=== PATIENT | male | born 1950 | race Caucasian/White ===

== ENCOUNTER 2016-12-09 13:01 | Emergency (ER) | payer OTHER ==
[~2016-12-09] VITALS: Ht 182.9 cm; Wt 94.4 kg
[~2016-12-09 13:01] MED LIST: ATORVASTATIN CA20 MG PO; CIPRO500 MG PO; DELTASONE20 M1 PO; FLOMAX0.4 MG PO; GABAPENTIN300 MG PO; LISINOPRIL10 MG PO; LO-DOSE ASPIRIN81 M1 PO; METAGLIP 5/51 TABLET PO; NOHOMEMEDS; OXAYDO5 MG PO; PERCOCET 5/31 TABLET PO; TRULICITY0.75 MG/0. SC; ZOFRAN4 MG PO
[2016-12-09 13:36] LABS: ADD MIUA? YES; BILIRUBIN NEGATIVE; BLOOD SMALL; COLOR AMBER ((YELLOW)); GLUCOSE (STRIP) 150; KETONES 5; LEUKOCYTES NEGATIVE; NITRITE NEGATIVE; PROTEIN (STRIP) 30; SPECIFIC GRAVITY 1.025 (1.000-1.030)
[2016-12-09 13:49] LABS: EPITHELIAL CELLS RARE /HPF; MUCUS NONE SEEN /LPF; RED BLOOD CELLS RARE /HPF (0-5); WHITE BLOOD CELLS NONE SEEN /HPF (0-5)
[2016-12-09 13:50] LABS: BACTERIA RARE /HPF; UCUL ADDED? NO
[2016-12-09 14:51] LABS: HEMATOCRIT 42.8 % (38.0-50.0); MCH 28.7 PG (29.0-34.0); MCHC 34.6 G/DL (30.0-36.0); MCV 82.9 FL (86-99); MEAN PLAT.VOLUME 9.7 uM^3 (9.0-12.4); PLATELET COUNT 214 K/uL (156-360); RBC DIS.WIDTH-CV 12.1 % (11.8-14.6); RBC DIS.WIDTH-SD 36.9 % (39-53); RED BLOOD COUNT 5.16 M/uL (4.00-5.50); WHITE BLOOD COUNT 6.7 K/uL (4.1-10.2)
[2016-12-09 15:05] LABS: CHLORIDE 105 mEq/L (99-109); POTASSIUM 4.1 mEq/L (3.7-5.4); SODIUM 135 mEq/L (136-147)
[2016-12-09 15:08] LABS: GLUCOSE 169 mg/dL (70-99)
[2016-12-09 15:09] LABS: ANION GAP 11 MEQ/L (2-14)
[2016-12-09 15:10] LABS: TOTAL BILIRUBIN 1.1 mg/dL (0.0-1.0)
[2016-12-09 15:11] LABS: ALKALINE PHOSPHATASE 107 IU/L (3-129); GFR ESTIMATE (CALCULATED) 30 mL/min/
[2016-12-09 15:12] LABS: UREA NITROGEN (BUN) 29 mg/dL (9-23)
[2016-12-09 15:15] LABS: LIPASE 25 U/L (1.0-51.0)
[2016-12-09] MEDS ORDERED: PERCOCET 5/31 TABLET PO (16:18)
[2016-12-09] MEDS ORDERED: ZOFRAN ODT4 MG PO (16:19)
[2016-12-09 16:34] VITALS: BP 142/88
== END 2016-12-09 16:35 | disposition home or self-care (01) ==
LOC: EME 13:01
PROVIDERS: Physician Assistant
DX: R10.9 Unspecified abdominal pain (principal); R31.9 Hematuria, unspecified; E11.22 Type 2 diabetes mellitus with diabetic chronic kidney disease; N18.9 Chronic kidney disease, unspecified; Z79.84 Long term (current) use of oral hypoglycemic drugs; Z87.442 Personal history of urinary calculi; G89.29 Other chronic pain
CPT/HCPCS: 74000; 80053; 81003; 83690; 85027; 99281; 99283; J2270; J2405; J7030